=== PATIENT | male | born 1990 | race Caucasian/White ===

== ENCOUNTER 2016-10-07 17:41 | Emergency (ER) | payer SELFPAY | END 2016-10-07 19:05 | disposition home or self-care (01) | LOC: D.ER 17:41 | DX: K04.7 Periapical abscess without sinus (principal); K08.89 Other specified disorders of teeth and supporting structures; F17.200 Nicotine dependence, unspecified, uncomplicated ==

== ENCOUNTER 2017-03-29 15:03 | Emergency (ER) | payer SELFPAY | END 2017-03-29 18:48 | disposition home or self-care (01) | LOC: D.ER 15:03 | DX: N45.1 Epididymitis (principal); F17.200 Nicotine dependence, unspecified, uncomplicated ==